=== PATIENT | male | born 1950 | race Caucasian/White ===

== ENCOUNTER → 2021-01-07 11:42 | Outpatient (CLI) | payer MEDICARE, OTHER, SELFPAY ==
[2021-01-07 13:55] LABS: COVID19 -Nasal RAPID Negative (Negative)
== END ==
PROVIDERS: Referring Provider Physician Assistant; Visit Provider Physician Assistant
DX: Z20.822 Contact with and (suspected) exposure to COVID-19 (principal); R42 Dizziness and giddiness
CPT/HCPCS: 87635

== ENCOUNTER → 2021-07-26 14:47 | Outpatient (CLI) | payer MEDICARE, OTHER, SELFPAY ==
--- NOTE | 2021-07-26 14:49 | DI.CT.S_ITS ---
PROCEDURE: CT SINUS SCREEN WO CON INDICATIONS: Chronic pansinusitis TECHNIQUE: Noncontrast 3.0 mm axial images acquired from the frontal sinuses to the mid-sella, with coronal and sagittal reformats. For radiation dose reduction, the following was used: automated exposure control, adjustment of mA and/or kV according to patient size. COMPARISON: None. FINDINGS: Frontal sinuses, sphenoid sinuses, maxillary sinuses, and ethmoid air cells are predominantly clear with no significant mucosal thickening. No obstruction of the sinus outflow tracts. No sinonasal mass identified. There are bilateral nuzhat bullosa without abnormal opacification. Leftward deviation of the nasal septum with prominent spurring producing a mucosal contact point with the inferior left nasal turbinate (series 4, image 25 for example). IMPRESSION: No findings of acute or chronic sinusitis. Small bilateral nuzhat bullosa. Moderate nasal septal deviation and spurring creating a mucosal contact point. Dictated by: Julio Waterman M.D. on 07/26/2021 at 15:44 Approved by: Julio Waterman M.D. on 07/26/2021 at 15:45
== END ==
PROVIDERS: Referring Provider Otolaryngology; Visit Provider Otolaryngology
DX: J32.4 Chronic pansinusitis (principal); J34.3 Hypertrophy of nasal turbinates; J34.2 Deviated nasal septum
CPT/HCPCS: 70486

== ENCOUNTER → 2021-10-31 09:41 | Outpatient (CLI) | payer MEDICARE, OTHER, SELFPAY ==
--- NOTE | 2021-11-08 16:05 | P.HOLT.S_ITS ---
D[facility]el [facility] Report Referral & Results Date Patient Seen: 10/31/21 Requesting provider: Dav Gloria Indication: Bradycardia Duration of monitoring (days): 3 Diary information: There was 1 patient triggered event associated with sinus rhythm PVCs Data: Minimum heart rate identified was 42 beats per minute at 05:52 on 11/01/2021 Maximum heart rate was 130 beats per minute at 18:02 on 10/31/2021 Less than 1% of identified beats were supraventricular ectopic in origin which would classify them as rare Approximately 1.4% of identified beats were ventricular ectopic in origin which would classify them as occasional this included an 11.5 second run of ventricular trigeminy and a 5.1 second run of ventricular bigeminy There were no episodes of SVT atrial fibrillation or pauses of 3 seconds or longer identified on this study Impression: 3 day panel monitor demonstrating occasional PVCs that might well be symptomatic based on patient events Heart rates otherwise as above Clinical correlation suggested
== END ==
PROVIDERS: PCP Pediatrics; Referring Provider Pediatrics; Visit Provider Pediatrics
DX: R00.1 Bradycardia, unspecified (principal)
CPT/HCPCS: 93242; 93244

== ENCOUNTER → 2022-04-01 13:44 | Outpatient (CLI) | payer MEDICARE, OTHER, SELFPAY | PROVIDERS: PCP Family Medicine; Visit Provider Family Medicine | DX: R30.0 Dysuria (principal) | CPT/HCPCS: 87086 ==

== ENCOUNTER → 2022-04-01 14:17 | Outpatient (CLI) | payer MEDICARE, OTHER, SELFPAY ==
[2022-04-01 15:18] LABS: Appearance Urine UA CLEAR; Bilirubin Urine UA NEGATIVE (NEGATIVE); Color Urine UA YELLOW; Glucose Urine UA NEGATIVE (Negative); Ketones Urine UA NEGATIVE (NEGATIVE); Leukocyte Esterase Urine UA NEGATIVE (NEGATIVE); Nitrite Urine UA NEGATIVE (Negative); Occult Blood Urine UA TRACE-LYSED (Negative); Protein Urine UA NEGATIVE (Negative); Urobilinogen Urine UA 0.2 E.U./dL (0.2); pH Urine UA 6.5 (4.5-8.0)
[2022-04-01 15:24] LABS: Bacteria Urine None Seen; Culture Indicated Urine Cult Not Indicated; RBC Urine 0-1/HPF (0-5/HPF); WBC Urine None Seen (0-5/HPF)
[2022-04-01 15:43] LABS: Add Manual Diff / Slide Review NO; Basophils Absolute Auto 0 /uL (0-100); Basophils Percent Auto 0.8 % (0-2); Eosinophils Absolute Auto 100 /uL (0-450); Eosinophils Percent Auto 2.4 % (2-4); Hematocrit 47.2 % (41-53); Hemoglobin 15.8 g/dL (13.5-17.5); Lymphocytes Absolute Auto 1200 /uL (1100-4500); Lymphocytes Percent Auto 23.7 % (25-40); Mean Corpuscular HGB Conc 33.5 % (30-36); Mean Corpuscular Hemoglobin 29.5 PG (26-34); Mean Corpuscular Volume 88.1 fL (80-100); Monocytes Absolute Auto 400 /uL (0-900); Monocytes Percent Auto 8.5 % (3-14); Neutrophils Absolute Auto 3200 /uL (1500-7000); Neutrophils Percent Auto 64.6 % (50-75); Platelet Count 183 X10^3/uL (150-400); Red Blood Cell Count 5.35 X10^6/uL (4.5-5.9); Red Cell Distribution Width 14.3 % (11.6-14.8); White Blood Cell Count 4.9 X10^3/uL (4.5-11.0)
[2022-04-01 15:44] LABS: Hemoglobin A1C% w Est Avg Glu 5.5 % (4.0-6.0)
[2022-04-01 16:00] LABS: Alanine Aminotransferase 17 IU/L (<50); Albumin 4.1 g/dL (3.5-5.0); Albumin Globulin Ratio 1.4 (1.0-2.8); Alkaline Phosphatase 66 U/L (38-126); Aspartate Aminotransferase 30 IU/L (17-59); BUN Creatinine Ratio 22.9 (6-22); Bilirubin Total 0.7 mg/dL (0.2-1.3); Blood Urea Nitrogen 19 mg/dL (9-20); Calcium 8.8 mg/dL (8.4-10.2); Carbon Dioxide 26 mmol/L (22-32); Chloride 104 mmol/L (98-107); Cholesterol 178 mg/dL (140-199); Estimated Glomerular Filt Rate > 60 mL/min (>60); Globulin 2.9 g/dL (1.7-4.1); Glucose 82 mg/dL (80-110); HDL Cholesterol 51 mg/dL (40-60); HEMOLYSIS < 15 (0-50); LDL Cholesterol Calculated 109 mg/dL (<100); Potassium 4.6 mmol/L (3.4-5.1); Sodium 138 mmol/L (137-145); Triglycerides 92 mg/dL (35-150)
[2022-04-01 16:30] LABS: Prostate Specific Antigen 1.66 ng/mL (0.10-4.00)
[2022-04-01 16:44] LABS: Urine Chlamydia NOT DETECTED; Urine N gonorrhoeae NOT DETECTED
[2022-04-22 12:09] LABS: Bacteria Urine None Seen; Culture Indicated Urine Cult Not Indicated; RBC Urine None Seen (0-5/HPF); Squamous Epithelial Cell Urine None Seen (0-5/HPF); WBC Urine None Seen (0-5/HPF)
== END ==
PROVIDERS: PCP Family Medicine; Referring Provider Family Medicine; Visit Provider Family Medicine
DX: Z00.00 Encounter for general adult medical examination without abnormal findings (principal); Z12.5 Encounter for screening for malignant neoplasm of prostate; R31.9 Hematuria, unspecified; R30.0 Dysuria; H53.9 Unspecified visual disturbance; H91.90 Unspecified hearing loss, unspecified ear; H93.19 Tinnitus, unspecified ear; M06.9 Rheumatoid arthritis, unspecified; M10.9 Gout, unspecified; Z76.89 Persons encountering health services in other specified circumstances
CPT/HCPCS: 36415; 80053; 80061; 81001; 81015; 83036; 84153; 85025; 87086; 87491; 87591

== ENCOUNTER → 2022-07-14 17:00 | Outpatient (CLI) | payer MEDICARE, OTHER, SELFPAY ==
[2022-07-14 17:55] LABS: Add Manual Diff / Slide Review NO; Basophils Absolute Auto 0 /uL (0-100); Basophils Percent Auto 0.5 % (0-2); Eosinophils Absolute Auto 100 /uL (0-450); Eosinophils Percent Auto 1.6 % (2-4); Hematocrit 46.3 % (41-53); Hemoglobin 15.8 g/dL (13.5-17.5); Lymphocytes Absolute Auto 1300 /uL (1100-4500); Lymphocytes Percent Auto 18.5 % (25-40); Mean Corpuscular HGB Conc 34.2 % (30-36); Mean Corpuscular Hemoglobin 29.6 PG (26-34); Mean Corpuscular Volume 86.6 fL (80-100); Monocytes Absolute Auto 500 /uL (0-900); Monocytes Percent Auto 6.6 % (3-14); Neutrophils Absolute Auto 5100 /uL (1500-7000); Neutrophils Percent Auto 72.8 % (50-75); Platelet Count 196 X10^3/uL (150-400); Red Blood Cell Count 5.34 X10^6/uL (4.5-5.9); Red Cell Distribution Width 14.3 % (11.6-14.8)
[2022-07-14 18:22] LABS: Alanine Aminotransferase 19 IU/L (<50); Albumin 4.2 g/dL (3.5-5.0); Albumin Globulin Ratio 1.3 (1.0-2.8); Alkaline Phosphatase 68 U/L (38-126); Aspartate Aminotransferase 32 IU/L (17-59); Bilirubin Total 0.9 mg/dL (0.2-1.3); Blood Urea Nitrogen 16 mg/dL (9-20); Calcium 8.9 mg/dL (8.4-10.2); Carbon Dioxide 28 mmol/L (22-32); Chloride 104 mmol/L (98-107); Estimated Glomerular Filt Rate > 60 mL/min (>60); Globulin 3.2 g/dL (1.7-4.1); Glucose 99 mg/dL (80-110); HEMOLYSIS < 15 (0-50); Potassium 4.4 mmol/L (3.4-5.1); Sodium 140 mmol/L (137-145); Total Protein 7.4 g/dL (6.3-8.2)
== END ==
PROVIDERS: PCP Family Medicine; Referring Provider Family Medicine; Visit Provider Family Medicine
DX: R10.32 Left lower quadrant pain (principal)
CPT/HCPCS: 36415; 80053; 85025

== ENCOUNTER → 2022-07-19 09:25 | Outpatient (CLI) | payer MEDICARE, OTHER, SELFPAY ==
--- NOTE | 2022-07-19 09:28 | DI.CT.S_ITS ---
PROCEDURE: CT ABDOMEN PELVIS W CON INDICATIONS: Lt Lower quad TECHNIQUE: After the administration of oral and IV contrast, axial sections were acquired from the lung bases to the pubic symphysis. Coronal and sagittal reformats were performed. For radiation dose reduction, the following was used: automated exposure control, adjustment of mA and/or kV according to patient size. COMPARISON: [facility], CT, ABDOMEN/PELVIS WITH CONTRAST, 11/22/2014, 17:34. FINDINGS: Image quality: Portions of the lower pelvis are suboptimally evaluated secondary to metallic streak artifact from hip arthroplasty. Lung bases: Unremarkable. Heart: No significant findings. ABDOMEN: Liver: Liver measures 18.4 cm with steatosis. Low-attenuation foci are again noted slightly more prominent and numerous most appearing consistent with simple cysts. Gallbladder: Unremarkable. Biliary ducts: Unremarkable. Pancreas: Unremarkable. Spleen: Punctate low-attenuation focus within the mid spleen too small to definitively characterize is again noted and unchanged. Adrenal Glands: Unremarkable. Kidneys and Ureters: Simple bilateral renal cysts are present. Stomach and Bowel: Stomach, small bowel loops, and colon are nonobstructive. Prominent colonic diverticula are present. There is no discrete areas associated colonic inflammatory change. Prominent colonic stool is present. Peritoneum: No abnormal intraperitoneal fluid. No free air. Ventral Wall: No hernia. Abdominal Nodes: No retroperitoneal or mesenteric adenopathy by size criteria. Vessels: Aorta and inferior vena cava are normal in size. PELVIS: Pelvic Organs: Unremarkable. Bladder: Unremarkable. Pelvic Nodes: No enlarged lymph nodes. Miscellaneous: No inguinal hernias are seen. Bones: Unremarkable. IMPRESSION: Colonic diverticulosis. Prominent colonic stool consistent constipation. No associated obstruction. Simple hepatic and renal cysts. Dictated by: Julieta Chanel M.D. on 07/19/2022 at 13:49 Approved by: Julieta Chanel M.D. on 07/19/2022 at 13:51
== END ==
PROVIDERS: PCP Family Medicine; Referring Provider Family Medicine; Visit Provider Family Medicine
DX: N28.1 Cyst of kidney, acquired (principal); K76.89 Other specified diseases of liver; R10.32 Left lower quadrant pain; K76.0 Fatty (change of) liver, not elsewhere classified; K57.90 Diverticulosis of intestine, part unspecified, without perforation or abscess without bleeding
CPT/HCPCS: 74177; Q9967

== ENCOUNTER → 2024-07-27 11:50 | Outpatient (CLI) | payer MEDICARE, OTHER, SELFPAY ==
--- NOTE | 2024-07-27 11:52 | DI.RAD.S_ITS ---
PROCEDURE: XR HIP W PEL IF DONE RT 2V INDICATIONS: right hip pain TECHNIQUE: Three views of the right the hip were acquired. COMPARISON: None. FINDINGS: Bones: There are no osseous abnormalities. SI and hip joints: Severe right hip degeneration appreciated. Left total hip prosthesis is anatomically aligned without loosening or infection. Moderate heterotopic ossification is seen in the superior pericapsular region. SI joints are normal Soft tissues: No soft tissue swelling, calcification or mass. IMPRESSION: Severe right hip degeneration. Left hip prostheses anatomically aligned with moderate superior pericapsular calcification Dictated by: Abdirizak Salter M.D. on 07/28/2024 at 6:24 Approved by: Abdirizak Salter M.D. on 07/28/2024 at 6:25
[2024-07-27 13:13] LABS: Hematocrit 47.3 % (41-53); Mean Corpuscular HGB Conc 33.7 % (30-36); Mean Corpuscular Hemoglobin 29.6 PG (26-34); Mean Corpuscular Volume 87.8 fL (80-100); Platelet Count 212 X10^3/uL (150-400); Red Blood Cell Count 5.39 X10^6/uL (4.5-5.9); Red Cell Distribution Width 14.5 % (11.6-14.8); White Blood Cell Count 5.5 X10^3/uL (4.5-11.0)
[2024-07-27 13:39] LABS: Alanine Aminotransferase 22 IU/L (<50); Albumin 4.4 g/dL (3.5-5.0); Albumin Globulin Ratio 1.6 (1.0-2.8); Alkaline Phosphatase 79 U/L (38-126); Aspartate Aminotransferase 35 IU/L (17-59); Bilirubin Total 0.9 mg/dL (0.2-1.3); Blood Urea Nitrogen 16 mg/dL (9-20); Calcium 9.1 mg/dL (8.4-10.2); Carbon Dioxide 28 mmol/L (22-32); Chloride 104 mmol/L (98-107); Cholesterol 203 mg/dL (140-199); Estimated Glomerular Filt Rate > 60 mL/min (>60); Globulin 2.8 g/dL (1.7-4.1); Glucose 81 mg/dL (70-99); HDL Cholesterol 51 mg/dL (40-60); HEMOLYSIS < 15 (0-50); LDL Cholesterol Calculated 130 mg/dL (<100); Potassium 5.1 mmol/L (3.4-5.1); Sodium 139 mmol/L (137-145); Total Protein 7.2 g/dL (6.3-8.2); Triglycerides 110 mg/dL (35-150)
[2024-07-27 14:08] LABS: Prostate Specific Antigen 2.35 ng/mL (0.10-4.00); TSH w/ Reflex to FT4 1.72 uIU/mL (0.47-4.68)
== END ==
PROVIDERS: PCP Internal Medicine; Referring Provider Internal Medicine; Visit Provider Internal Medicine
DX: M15.0 Primary generalized (osteo)arthritis (principal); M16.11 Unilateral primary osteoarthritis, right hip; E78.2 Mixed hyperlipidemia
CPT/HCPCS: 36415; 73502; 80053; 80061; 84153; 84443; 85027

== ENCOUNTER → 2024-08-04 10:00 | Outpatient (CLI) | payer MEDICARE, OTHER, SELFPAY ==
--- NOTE | 2024-08-04 10:04 | DI.RAD.S_ITS ---
PROCEDURE: XR WRIST LT 2V INDICATIONS: L wrist pain hx gout TECHNIQUE: 2 views of the wrist were acquired. COMPARISON: None. FINDINGS: Bones: No acute fractures or dislocations. No suspicious bony lesions. Severe joint space narrowing at the radiocarpal articulation. Degenerative changes at the 1st carpometacarpal and triscaphe joints as well as the 1st metacarpophalangeal joint. Mild lucency in the foveal region of the ulnar head may represent degenerative cystic changes or chronic osseous erosion. Mild remodeling or chronic erosion at the ulnar aspect of the distal radial metaphysis. Soft tissues: Chondrocalcinosis. Soft tissue edema surrounds the wrist. IMPRESSION: 1. Nonspecific soft tissue edema surrounding the wrist. 2. No acute osseous abnormality. If there is continued clinical concern or persistent symptoms, repeat radiographs or cross-sectional imaging (e.g. CT, MRI) may be helpful for further evaluation. 3. Chondrocalcinosis. Differential diagnosis includes but is not limited to hemochromatosis, hyperparathyroidism and CPPD. Calcified gouty tophus is not excluded. 4. Osteoarthrosis, severe at the radiocarpal articulation. Approved by: Harry Valdivia M.D. on 08/04/2024 at 10:25
[2024-08-04 11:20] LABS: Uric Acid 7.1 mg/dL (3.5-8.5)
== END ==
PROVIDERS: PCP Internal Medicine; Referring Provider Internal Medicine; Visit Provider Chiropractor
DX: S63.502A Unspecified sprain of left wrist, initial encounter (principal); M79.89 Other specified soft tissue disorders; M11.232 Other chondrocalcinosis, left wrist; M19.032 Primary osteoarthritis, left wrist; M10.9 Gout, unspecified; X58.XXXA Exposure to other specified factors, initial encounter
CPT/HCPCS: 36415; 73100; 84550

== ENCOUNTER → 2024-09-06 10:31 | Outpatient (CLI) | payer MEDICARE, OTHER, SELFPAY ==
--- NOTE | 2024-09-06 10:35 | EKG_ITS ---
[address] [address] Test Date: 2024-09-06 Pat Name: Javy Peraza Department: [facility] Room: Gender: Male Housekeeping Manager: KIRILL : 1950 Requested By: Order Number: [id number] Reading MD: Abdirizak Segovia MD Measurements Intervals [place] Rate: 52 P: 66 MS: 188 QRS: 50 QRSD: 102 T: 19 QT: 428 QTc: 398 Interpretive Statements Sinus bradycardia with occasional premature ventricular complexes and premature atrial complexes Electronically Signed On 09-06-2024 12:11:20 PDT by Abdirizak Segovia MD
== END ==
PROVIDERS: PCP Internal Medicine; Referring Provider Internal Medicine; Visit Provider Internal Medicine
DX: Z01.818 Encounter for other preprocedural examination (principal)
CPT/HCPCS: 93005

== ENCOUNTER 2024-09-21 07:11 | Day surgery (SDC) | payer MEDICARE, OTHER, SELFPAY ==
[2024-09-16 08:42] VITALS: BMI 29.7
[2024-09-21] VITALS (14 sets, daily range): BP systolic 89–139; BP diastolic 49–81; PULSE 53–75; RESP 12–20; TEMP 36.2–37.2; O2SAT 91–99; BMI 29.4
--- NOTE | 2024-09-21 | DI.RAD.S_ITS ---
PROCEDURE: XR HIP W PEL IF DONE RT 2V INDICATIONS: intra op total right hip TECHNIQUE: 2 intraoperative fluoroscopic view(s) of the hip acquired. COMPARISON: [facility], CR, XR HIP W PEL IF DONE RT 2V, 07/27/2024, 11:48. FINDINGS: Bones: Intraoperative fluoroscopic images shows right total hip arthroplasty with anatomic right hip alignment. IMPRESSION: Fluoro guidance was provided intraoperatively for right total hip arthroplasty performed by ordering physician. Dictated by: Manny Plummer M.D. on 09/21/2024 at 11:12 Approved by: Manny Plummer M.D. on 09/21/2024 at 11:13
[2024-09-21] MEDS: ACETAMINOPHEN 325 MG TABLET 975 MG PO (07:55)
[2024-09-21] MEDS: CELECOXIB 200 MG CAPSULE PO (07:56)
[2024-09-21] MEDS: GABAPENTIN 300 MG CAPSULE PO (07:56)
[2024-09-21] MEDS: LACTATED RINGERS 1,000 ML 42 ML IV (07:58)
--- NOTE | 2024-09-21 08:05 | PM.PREOP ---
Pre-operative Note Interval Note History & Physical reviewed/Exam performed by Physician: Yes Changes to H&P: No H&P completed within 30 days and has changed as indicated here:: Please note that the patient's operative right side is significantly shorter than his left both clinically and radiographically. I plan to lengthen his operative side today to equalize it to the nonoperative side. I clearly explained this to the patient. His operative side will feel longer after this surgery and that is intentional as it is shorter preoperatively.
--- NOTE | 2024-09-21 08:56 | DI.RAD.S_ITS ---
PROCEDURE: XR HIP W PEL IF DONE RT 2V INDICATIONS: GEORGE TECHNIQUE: AP pelvis and lateral view of the hip acquired. COMPARISON: [facility], CR, XR HIP W PEL RT 2V, 09/21/2024, 10:48. FINDINGS: Bones: Patient is status post right hip arthroplasty, with hardware components in expected positions. The hip joint appears congruent. There is also prior left total hip arthroplasty. The visualized bony structures appear intact. Soft tissues: Overlying postoperative changes are noted. No suspicious soft tissue densities. IMPRESSION: Expected post-operative appearance of a hip arthroplasty. Dictated by: Manny Plummer M.D. on 09/21/2024 at 12:18 Approved by: Manny Plummer M.D. on 09/21/2024 at 12:19
[2024-09-21] MEDS: CEFAZOLIN 2 GM/100 ML PREMIX 100 ML IV (09:05)
[2024-09-21] MEDS: TRANEXAMIC ACID 1,000 MG VIAL 1000 MG INJ ×2 (09:20→10:52)
--- NOTE | 2024-09-21 09:34 | SUR.OPER ---
Supine on padded [place] table with bilateral legs secured in padded positioning boots and suspended in positioning spars, operative leg in traction per surgeon. Head on one pillow. Arm on non-operative side secured on padded armboard <90 degrees abduction. Arm on operative side padded and resting across chest then secured with tape over sheet. Padded perineal post in place per surgeon.
[2024-09-21] MEDS: BUPIVACAINE 0.5% W/ EPI (PF) 30 ML VIAL 60 ML INJ (09:42)
[2024-09-21] MEDS: KETOROLAC 30 MG/ML VIAL 15 MG INJ (09:45)
--- NOTE | 2024-09-21 11:00 | PM.OP.1 ---
Operative Date/Time/Diagnoses Date of procedure: 09/21/24 Time of procedure: 08:45 Pre-op diagnosis: Right hip osteoarthritis Post-op diagnosis: same Procedure & Clinicians Procedure: Right total hip arthroplasty Same procedure(s) as scheduled: Yes Surgeon: Casey Tavares Workforce Management Consultant: Ameena Heredia Anesthesia Type: Spinal, Sedation and Local Operative Notes Findings: Severe right hip arthritis Applied: implant(s) Estimated Blood Loss (mL): 300 Procedure in detail: Right Uncemented Direct Anterior Depuy Total Hip Arthroplasty: Implants: [place] Gription size 60 cup?with +4 liner Actis femoral stem size 8 high offset? 36 mm +1.5 ceramic femoral head? Procedure Summary: This 74-year-old male patient had previously undergone a left total hip arthroplasty and had severe right hip arthritis. I had templated him for a low neck cut and the largest head size in the system however I was able to take a larger neck cut than I had initially templated for and fit a larger sized stem. I initially attempted to trial with a +5 head but was unable to reduce it. A +1.5 head resulted in appropriate stability parameters and had equal leg lengths to the other side with more offset than the other side. I did not want to decrease his offset to match a hip that had been previously been replaced and my templated indicated that he would need both a high offset liner and a high offset stem in order to restore his [place] offset so I implanted those implants. Stability was appropriate on all parameters at the conclusion of the case. The hip was very tight and required a conjoined tendon release. Procedure in Detail: This patient was seen preoperatively and evaluated for hip pain which was refractory to numerous nonoperative treatment modalities. Their hip pain correlated with radiographic changes demonstrating significant degeneration in the hip joint. The risks and benefits of continued nonoperative management versus operative management were discussed at length and all of the patient?s questions were answered. Additional educational materials providing further details beyond our discussion in clinic were provided via a publicly available patient education video which included the incidence of medical complications associated with total hip arthroplasty, reasons for revision following total hip arthroplasty, and patient satisfaction rates following total hip arthroplasty. With this understanding of the risks inherent to the procedure, the patient elected to move forward with operative management. Following preoperative optimization, the patient was scheduled for surgery. The patient was met in the preoperative holding area the day of the procedure and all questions were answered. The patient?s nares were swabbed in order to decolonize them from MRSA. Informed consent was signed and the right limb was marked with indelible ink.? The patient was brought back to the operating room where anesthesia was induced. The patient was transferred to the [place] table and all bony prominences were padded. The operative site was prepped and draped in the usual sterile fashion. Prior to incision, tranexamic acid and cefazolin were administered. Operative templating images were displayed demonstrating the anticipated implant sizes and correct operative extremity. A timeout procedure was performed verifying the patient?s identity, medical comorbidities, allergies, relevant medications, anesthesia type and the surgical plan. All present were in agreement. The assistance of a physician home care assistant was required for positioning, room setup, soft tissue retraction and wound closure. Without this assistance, the procedure would have been significantly more challenging and time consuming.?? A direct anterior approach to the hip was utilized. This was performed with a longitudinal incision through a Heuter interval. The incision was planned 2 cm distal and 2 cm lateral to the ASIS extending towards the lateral patella, in line with the muscle body of the TFL. Following incision, the subcutaneous tissue was dissected while taking care to avoid injury to the lateral femoral cutaneous nerve. The fascia overlying the TFL was identified by dissecting off the overlying fat and identifying perforating vessels to the TFL. The TFL fascia was incised and dissected away from the medial border of the TFL. A retractor was placed over the superior femoral neck between the abductors and the hip capsule and used to reflect the TFL laterally. A [place] self-retainer was then placed in the distal aspect of the wound between the TFL and the rectus femoris. This was tensioned to open up the direct anterior interval and the lateral circumflex vessels were identified and coagulated using electrocautery. The floor of the TFL fascia was incised, exposing the pericapsular fat overlying the hip capsule. A second cobra retractor was placed on the inferior femoral neck. A retractor was placed on the anterior wall of the acetabulum and used to tension the reflected head of rectus femoris, which was then released in order to limit soft tissue tension. A capsulotomy was made in the midline of the anterior hip capsule in line with the femoral neck ending at the vastus tubercle. The anterior retractor was removed as soon as the capsulotomy was completed in order to limit the amount of time that a soft tissue retractor remained on the anterior wall and limit tension on the femoral nerve. Tag stitches were placed in the superior and inferior leaflets of the hip capsule. An [place] soft tissue retractor was introduced over the tag stitches and tensioned in the interval between the rectus femoris and the TFL in order to retract and protect those muscles. The cobra retractors were replaced intracapsularly, with one over the superior neck in the pocket created by the base of the greater trochanter and the other on the femoral head. The capsulotomy was extended laterally to the base of the greater trochanter and medially to the lesser trochanter. This required externally rotating the hip. Once the lesser trochanter had been identified, a neck cut was planned according to measurements from preoperative templating. A ruler was cut at the length measured between the superior aspect of the lesser trochanter and the collar of the prosthesis. This line was extended towards the inferior aspect of the lateral cobra retractor to plan a cut which would leave minimal residual femoral neck laterally. The neck was cut at 60 degrees of external rotation along that line. A second cut was performed to remove a large napkin ring and facilitate head extraction. The napkin ring cut and femoral head were removed.?? A broad anterior wall retractor was placed between the labrum and the anterior capsule so that the anterior capsule would prevent capturing and pinching the femoral nerve anteriorly. An additional retractor was placed on the posterior wall. External rotation and traction were applied through the [place] table so that the cut surface of the femoral neck would not restrict access to the acetabulum. The labrum was excised sharply and the pulvinar was excised with electrocautery to limit bleeding from branches of the obturator artery. Acetabular reamers were selected based on preoperative templating and measurements of the excised femoral head. These were introduced into the acetabulum. Fluoroscopy was utilized to replicate a standing AP pelvis radiograph by centering over the pelvis, rotating until there was appropriate symmetry between the obturator foramen, and introducing caudal tilt to match the position of the pubic symphysis relative to the sacrococcygeal junction according to the patient?s anatomy. Once satisfied with the reaming depth corresponding to the preoperative template and the pinch fit between the columns, an appropriate sized acetabular cup was selected which would provide 1 mm of press-fit. This cup was introduced and manipulated until appropriate abduction and anteversion angles were obtained with careful attention to appropriate abduction and anteversion angles as evaluated by the position of the cup relative to the anterior and posterior gunn of the acetabulum and the AP fluoroscopy which recreated the patient?s standing radiograph. The cup was impacted into place. Peripheral osteophytes were removed. The acetabular liner was then placed with care to ensure locking of the locking mechanism. Attention was then turned to the femur. All retractors were removed, traction was released, a retractor was placed in the interval between the hip capsule and the gluteus minimus. The lateral capsule was released using electrocautery. Traction was released and a [place] hook was placed posteriorly around the proximal femur at the level of the vastus ridge. The table height was lowered in order to restrict the tension on the anterior structures during hip hyperextension to limit the risk of femoral nerve palsy. With traction off and the hip at 90 degrees of external rotation, the hip was hyperextended and adducted while manually elevating the femur away from the acetabulum with the [place] hook to avoid hooking the greater trochanter on the pelvis. An asymmetric retractor was placed over the calcar and a broad double-pronged retractor was placed over the greater trochanter. The tag stitch capturing the lateral leaflet of the capsule was moved to the medial side, leaving the conjoined and piriformis tendons isolated in the face of the greater trochanter. The hip was externally rotated and elevated. A release of the conjoined tendon was necessary in order to obtain adequate exposure for broaching. The canal was opened with an opening broach and a rasp was used to remove cancellous bone. A rongeur was used to remove the residual lateral bone at the base of the greater trochanter to avoid placing the stem in varus. The femur was then broached to the appropriate sized stem yielding good rotational fit and fill of the canal as well as appropriate version of the stem trial. Neck and head trials were placed, all retractors were removed and the hip was returned to neutral abduction and extension. I then reduced the hip and manually trialed it before changing surgical gloves. Initial trialing was performed with a size 8 broach, a high offset neck and a +5 head. I attempted to reduce this with the aid of the table and was not able to do so so I downsized to a +1.5 head. I was then able to reduce the hip. I initially manually externally rotated the hip and found no instability. I then locked the hip in 45 degrees of external rotation and dropped it to the floor with traction off which demonstrated no instability. An AP pelvis fluoroscopic image matching the preoperative standing radiograph with both lesser trochanters visible and both hips in 40 degrees of external rotation demonstrated equal leg lengths of the contralateral side and increased offset. AP and lateral hip fluoroscopic images were obtained to evaluate the broach size which demonstrated good canal fill. The hip was dislocated and I returned to the broaching position. Based on my evaluation during initial trialing I planned to place these definitive implants. The definitive stem was placed and the trunnion was cleaned and dried. I placed a ceramic head onto the trunnion and impacted it into place on the [place] taper.?? All retractors were removed and the hip was reduced. A dilute mixture of betadine and peroxide was used to bathe the soft tissues during final fluoroscopic assessment. Appropriate component positioning was confirmed on an AP pelvis radiograph with the operative and nonoperative legs in 40 degrees of external rotation, evaluating leg length and offset. Appropriate stem fill was evaluated on AP and lateral hip radiographs. No previously unrecognized fractures were identified on these radiographs. There was no hip instability with maximum (100?) external rotation as well as a 45 degree drop test. The hip was copiously irrigated with pulse lavage. The capsule was closed with absorbable interrupted suture. The TFL fascia was closed with barbed suture while carefully protecting the lateral femoral cutaneous nerve from entrapment. A mixture of Ropivacaine, Epinephrine and Toradol was infiltrated throughout the soft tissues. The skin was closed with 2-0 and 3-0 sutures. Surgical glue was applied and a soft dressing was placed.??The sponge, instrument and needle counts were reported as being correct at the end of the case.??No obvious complications occurred. The patient was transferred from the [place] table back to a stretcher. The patient emerged from anesthesia without difficulty and was taken to the PACU in a stable condition.? Plan for aftercare: No hip precautions Weightbearing as tolerated Aspirin 81 twice per day for DVT prophylaxis Anticipate discharge home today Multimodal pain regimen with no IV opioids ordered Follow up at [facility] in 2 weeks Complications: none
--- NOTE | 2024-09-21 11:45 | DI.RAD.S_ITS ---
PROCEDURE: XR CHEST 1V INDICATIONS: LOW SATS TECHNIQUE: One view of the chest was acquired. COMPARISON: None. FINDINGS: Surgical changes and devices: None. Lungs and pleura: Low lung volumes. Left basilar atelectasis versus opacity. No pleural effusions or pneumothorax. Mediastinum: Mediastinal contours appear normal. Heart size is normal. Bones and chest wall: No suspicious bony lesions. Overlying soft tissues appear unremarkable. IMPRESSION: Mild left basilar atelectasis versus opacity. Recommend follow-up imaging to ensure resolution. Dictated by: Abhijeet Barboza M.D. on 09/21/2024 at 15:18 Approved by: Abhijeet Barboza M.D. on 09/21/2024 at 15:19
--- NOTE | 2024-09-21 12:53 | SUR.PHASEII ---
Patients is at the bedside. He has been provided a lunch tray. He is able to bend knees but still feels numb. Will continue to monitor.
--- NOTE | 2024-09-21 14:25 | PT.IIE ---
Current Diagnoses Unilateral primary osteoarthritis, right hip (09/21/24) Surgery Performed Operation Date: 09/21/24 08:45 Actual Procedures p Total Hip Arthroplasty/Anterior Approach(Right) - Casey Tavares MD Surgical History (Last Updated 09/16/24 @ 09:26 by Rhea Lazar, RN) Anesthesia History of gastrointestinal surgery (~1999) History of shoulder surgery History of total left hip replacement History of total right knee replacement Medical History (Last Updated 09/16/24 @ 08:49 by Rhea Lazar, RN) Family history of colon cancer in father Fractures (~1970) Gout (~1997) History of colonic polyps History of prosthetic unicompartmental arthroplasty of left knee Mixed hyperlipidemia Mumps (~1950) Overweight Primary osteoarthritis involving multiple joints Physical Therapy Inpatient Evaluation/Re-Eval M1 PT/OT-IP Prior Functional Status Start: 09/21/24 16:47 Freq: NEEDED Status: Active Protocol: Document 09/21/24 14:25 AB (Rec: 09/21/24 17:41 AB [id number]) Medical Review Prior Functional Status Medical History Yes Reviewed Communication able to make needs known Mobility and Gait pt stated that he was independent with all mobilities and ambulation without AD Social History Household Members spouse Living Arrangements House Number of Floors ( Two Floors Floors) Number of Stairs To 4 platform steps to enter the house Enter/Railing? has 14 steps B rails to get to bedroom level but pt can stay on main level of the house Home Environment Standard Height Toilet,Walk in Shower,Built-In Shower Seat Home Equipment Front Wheel Walker,Grab Bars Near Toilet Additional Social pt has an adjustable bed History Comment M2 PT-IP Current Condition Start: 09/21/24 16:47 Freq: NEEDED Status: Active Protocol: Document 09/21/24 14:25 AB (Rec: 09/21/24 17:41 AB [id number]) Physical Therapy Current Condition Current Condition Evaluation Date 09/21/24 Treatment Diagnosis s/p R GEORGE anterior; difficulty in walking Onset Date 09/21/24 M3 PT-IP Subjective Start: 09/21/24 16:47 Freq: NEEDED Status: Active Protocol: Document 09/21/24 14:25 AB (Rec: 09/21/24 17:41 AB [id number]) Subjective Physical Therapy Visit Type Type Initial Evaluation Visit Start Time 14:25 Visit Stop Time 14:50 Number of FURNACE ROOM SUPERVISOR Visits 0 Physical Therapy Visit Comments Patient Comments able to make needs known Therapy Pain Assessment Pain When Pain Assessed At Rest Pain Present Pain Present Pain Reported Location Right Thigh Intensity 2 Scale Used Numeric (0 - 10) Pain Management Distraction,Modification of Treatment,Re-positioning, Techniques Timing of Activity with Medications M4 PT-IP Mobility and Gait Start: 09/21/24 16:47 Freq: NEEDED Status: Active Protocol: Document 09/21/24 14:25 AB (Rec: 09/21/24 17:41 AB [id number]) PT-Bed Mobility Assessment Supine to Sit Supine to Sit Independent Sit to Supine Sit to Supine Independent PT-Transfer Assessment Sit to and From Stand Sit to and from Contact Guard Assistance,1 Person Assistance,Use of Stand Upper Extremities Equipment Transfer Assistive Gait Belt,Front Wheeled Walker Device Orthotic/Prosthetic No Devices or Brace: Comments Mobility Comments Nurse informed PT that pt is ready to be seen in PACU. checked on pt in PACU. nurse informed PT that pt's BP decreased to 89/55 and will be given IV fluid. Checked on pt and obtained PLOF and home set up. post-op folder provided to pt. PT left and to check back on pt when more medically stable. nurse informed PT after ~ 1 1/2 hours that pt is ready for PT with BP: 104/66. checked on pt and pt sitting on EOB. BP: 106/64. completed bed mobility mod I. sit to stand CGA and ambulated ~ 30 ft using FWW CGA. pt sat back on EOB. BP: 117/69. caregiver training conducted. educated spouse with use of safety belt and how to assist pt. spouse was able to put safety belt on and assisted pt with ambulation using FWW. stair climbing training. educated pt and spouse on how to do stairs. spouse was able to assist pt with stairclimbing. pt ambulated back to EOB. pt and spouse without other concerns. Gait Assessment Gait Gait Assistance Standby Assistance,Contact Guard Assist Required: Distance (Feet) 50 Able to Maintain Yes Weight Bearing Status During Gait Assistive Devices Assistive Device Gait Belt,Front Wheeled Walker Orthotic/Prosthetic No Devices or Brace: Gait Deviations General Gait Pattern Antalgic Factors Limiting Gait Function Factors Limiting Decreased Activity Tolerance,Decreased Strength,Limited Gait Function Range of Motion,Pain,Poor Balance,Poor Safety Awareness Stair Climbing Assessment Evaluation Level of Assist On Contact Guard Assistance Stairs Devices Stair Climbing Front Wheel Walker Assistive Devices Technique/Endurance Stair Climbing Ascend and Descend Direction Stair Climbing Step to Step Technique Number of Steps 1 Climbed Query Text: Stair Climbing Set # 2 Repetitions (reps) PT-Balance Assessment Sitting Balance and Reactions Static Sitting Normal Balance Ability Dynamic Sitting Normal Balance Ability Standing Balance and Reactions Static Standing Good Balance Ability Dynamic Standing Fair Balance Ability Device Used FWW M5 PT-IP Objective Assessments Start: 09/21/24 16:47 Freq: NEEDED Status: Active Protocol: Document 09/21/24 14:25 AB (Rec: 09/21/24 17:41 AB [id number]) Orientation Orientation/Cognition Level of Alertness Alert Orientation Name,Place,Situation Language Function Hard of Hearing Ability Safety Awareness Decreased Safety Awareness Memory Description No Deficits Noted Gross Range of Motion Lower Extremity ROM Assessment Within Functional Limits Strength Lower Extremity Strength Assessment Within Functional Limits Coordination Assessment Gross Coordination Gross Coordination WNL Sensation Assessment Sensation Gross Sensation WNL Muscle Tone Muscle Tone WNL Yes M6 PT-IP Treatment Start: 09/21/24 16:47 Freq: NEEDED Status: Active Protocol: Document 09/21/24 14:25 AB (Rec: 09/21/24 17:41 AB [id number]) Physical Therapy Treatment Education Education Provided Precautions,Weight Bearing Status,Post-Op Packet,Safety M7 PT-IP Assessment and Plan Start: 09/21/24 16:47 Freq: NEEDED Status: Active Protocol: Document 09/21/24 14:25 AB (Rec: 09/21/24 17:41 AB [id number]) PT Summary Assessment and Plan Potential Rehabilitation Good Potential Status of Condition Stable at Evaluation Summary Impairments Pain,ROM,Strength,Balance,Coordination,Sensation,Tone, Cognition,Bed Mobility,Transfers,Gait,Activity Tolerance Assessment Summary pt is a 74 y/o M s/p R GEORGE anterior approach POD 0. pt is WBAT on RLE. pt able to ambulate using FWW CGA. caregiver training conducted and spouse was able to assist pt safely. pt has outpt PT setup. Goals Bed Mobility Goal Independent Transfer Goal Independent,Front Wheeled Walker Gait Goal Independent,Front Wheel Walker Gait Distance 200 Other Goals up/down 4 platform step using FWW SBA Days to Meet Goals 5 Frequency of Treatment Frequency Of Once a Day Treatment Treatment Plan Physical Therapy Bed Mobility Training,Transfer Training,Gait Training, Treatment Plan Therapeutic Exercise,Balance Retraining,Post Op Education,Discharge Planning,Hot or Cold Pack, Neuromuscular Re-ed,Coordination Retraining,Manual Therapy Weight Bearing Status Weight Bearing Weight Bear as Tolerated Status Allowed Weight RLE WBAT Bearing Amount ( enter % or #) (%) Recommendations To Nursing Amount of Assist 1 Person Assist Needed Discharge Recommendations PT Discharge Home with Assistance,Outpatient PT Recommendations Transportation Needs Private Vehicle at Discharge - PT assist 1
[2024-09-21] MEDS: LACTATED RINGERS 1,000 ML 100 ML IV (14:36)
--- NOTE | 2024-09-21 14:42 | SUR.PHASEII ---
[address] Tavares. Discussed patient's status regarding inability to void, bladder scan showed 588mls. Patient reported numbness to buttocks. Per MD, continue to monitor patient status and re-evaluate bladder status/numbness within 2 hours.
[2024-09-21] MEDS: ACETAMINOPHEN 325 MG TABLET 650 MG PO (15:57)
== END 2024-09-21 16:27 | disposition home or self-care (01) ==
PROVIDERS: PCP Internal Medicine; Referring Provider Orthopaedic Surgery Adult Reconstructive Orthopaedic Surgery; Visit Provider Orthopaedic Surgery Adult Reconstructive Orthopaedic Surgery
PROC: (CPT 27130; principal; 2024-09-21 08:45)
DX: M16.11 Unilateral primary osteoarthritis, right hip (principal); Z96.642 Presence of left artificial hip joint
CPT/HCPCS: 27130; 71045; 73502; 76000; 97161; 97530; C1776; J0690; J1100; J1885; J2405; J2704; J3010